=== PATIENT | male | born 1960 | race Caucasian/White ===

== ENCOUNTER 2016-10-22 16:51 | Emergency (ER) | payer BC, OTHER ==
[~2016-10-22] VITALS: Ht 190.5 cm; Wt 100.0 kg
[2016-10-22 16:52] VITALS: BP 134/72; PULSE 83; RESP 16; TEMP 97.7; O2SAT 97
--- NOTE | 2016-10-22 17:23 | PD ---
HPI Chief Complaint: Back/ Neck Pain or Injury Time Seen by Provider: 17:10 Travel History International Travel<30 days: No Contact w/Intl Traveler<30days: No Traveled to known affect area: No History of Present Illness HPI 56-year-old male presents for evaluation of lower back pain. He reports that yesterday he bent over in order to lift something off the ground when he felt a severe lower back pain. Since then he's had constant lower back pain that is somewhat alleviated when he is lying still. It is worse when he tries to move or sit up. The pain does not radiate into the abdomen or down the legs. He denies any bowel or bladder incontinence, saddle anesthesia. He has been using [id number] NSAIDs with minimal relief. He reports that he had a similar pain one time before, 4 years ago. He reports that he had an MRI but does not know the exact results of the MRI. He was sent to a neurosurgeon, no surgery was performed and eventually his pain went away. His primary care physician is Dr. Case. No other complaints. [facility] Social History Tobacco Use: No Allergies-Medications (Allergen,Severity, Reaction): Coded Allergies: No Known Allergies (Unverified , 10/22/16) Reported Meds & Prescriptions Reported Meds & Active Scripts Active Lidoderm Patch 12 HR (Lidocaine) 5% Patch 1 Patch TOPICAL DAILY PRN Remove patch after [address] (Diclofenac Sodium) 75 Mg Tabdr 75 Mg PO BID 10 Days Baclofen 10 Mg Tab 10 Mg PO Q8HR PRN 10 Days Review of Systems Except as stated in HPI: all other systems reviewed are Neg Physical Exam Narrative GENERAL: Well-developed well-nourished male in no acute distress SKIN: Warm and dry. HEAD: Atraumatic. Normocephalic. EYES: Pupils equal and round. No scleral icterus. No injection or drainage. ENT: No nasal bleeding or discharge. Mucous membranes pink and moist. NECK: Trachea midline. No JVD. CARDIOVASCULAR: Regular rate and rhythm. No murmur appreciated. RESPIRATORY: No accessory muscle use. Clear to auscultation. Breath sounds equal bilaterally. GASTROINTESTINAL: Abdomen soft, non-tender, nondistended. Hepatic and splenic margins not palpable. MUSCULOSKELETAL: There is no reproducible tenderness to palpation along the thoracic or lumbar spine or paravertebral musculature. The patient is able to sit up from a lying down position with some pain. He has pain with hip flexion bilaterally. He has 5 out of 5 muscle strength on hip flexion, leg flexion and extension, dorsi and plantar flexion bilaterally. 1+ patellar reflex and Achilles reflex bilaterally. NEUROLOGICAL: Awake and alert. No obvious cranial nerve deficits. Motor grossly within normal limits. Normal speech. Data Data Last Documented VS Vital Signs Date Time Temp Pulse Resp B/P Pulse Ox O2 Delivery O2 Flow Rate FiO2 10/22/16 18:53 16 10/22/16 16:52 97.7 83 134/72 97 Orders Ketorolac Inj (Toradol Inj) (10/22/16 17:30) Morphine Inj (Morphine Inj) (10/22/16 17:30) Ondansetron Inj (Zofran Inj) (10/22/16 17:30) Iv Access Insert/Monitor (10/22/16 17:18) Sodium Chlor 0.9% 1000 Ml Inj (Ns 1000 M (10/22/16 17:52) MDM Medical Decision Making Medical Screen Exam Complete: Yes Emergency Medical Condition: Yes Medical Record Reviewed: Yes Differential Diagnosis Lumbar strain, lumbar spasm, compression fracture, spondylolisthesis, spinal stenosis, herniated nucleus pulposus, cauda equina Narrative Course This is a 56-year-old male with 2 days of lower back pain which started when he went to bend over to lift something off the ground. He has no reproducible tenderness to palpation. He has no symptoms of radiculopathy. He has nothing to suggest a central spinal cord lesion. His symptoms are consistent with a mechanical lumbar strain. The patient was given IV pain medication which did seem to help with his pain. The family members felt quite certain that the patient required emergent MRI of the lumbar spine. There is no indication for an emergent MRI of the lumbar spine. He has no symptoms to suggest spinal cord compromise or infectious process or malignancy as the etiology of his lower back pain. Ideally this patient follow-up with his primary care physician, would likely benefit from physical therapy follow-up. The family was once again quite concerned that the MRI was not being ordered emergently. Dr Luna examine the patient and agreed. Ultimately the charge nurse became involved in order to discuss with family members. We have provided the patient an order slip for an outpatient MRI. He is also being given nonnarcotic pain medication. He is stable for discharge. Diagnosis Primary Impression: Lumbar strain Qualified Code: S39.012A - Lumbar strain, initial encounter Additional Instructions: Use the medication as needed. Take diclofenac with meals. Do not take ibuprofen, naproxen, Aleve, Advil, Motrin when taking diclofenac because they are in the same class of medication. Do not drive or drink alcohol when taking baclofen because it may cause sedation. Avoid strenuous activity or heavy lifting. Avoid bed rest because this can exacerbate the problem. Follow-up with primary care physician. Return for any acutely new or worsening symptoms. Med/Other Pt SpecificInfo: Prescription(s) given Scripts Lidocaine Patch 12 HR (Lidoderm Patch 12 HR)5% Patch1 Patch TOPICAL DAILY PRN ( PAIN) #1 BOX Ref 1 Remove patch after 12 hours Prov:Mara Luna MD 10/22/[address] 75 Mg Tabdr75 Mg PO BID 10 Days Ref 0 Prov:Mara Luna MD 10/22/16 Baclofen 10 Mg Tab10 Mg PO Q8HR PRN (MUSCLE SPASM) 10 Days Ref 0 Prov:Mara Luna MD 10/22/16 Disposition: 01 DISCHARGE HOME Condition: Stable Vito Vann October 22, 2016 17:22
[2016-10-22] MEDS ORDERED: ONDANSETRON HCL 4 MG/2 ML VIAL IV PUSH ONE (17:30)
[2016-10-22] MEDS ORDERED: KETOROLAC TROMETHAMINE 30 MG/ML (IVP) VIAL IV PUSH ONE (17:30)
[2016-10-22] MEDS ORDERED: MORPHINE SULFATE 8 MG/ML INJ IV PUSH ONE (17:30)
[2016-10-22] MEDS ORDERED: SODIUM CHLOR 0.9% 1000 ML INJ 1,000 ML IV SCH (17:52)
[2016-10-22] MEDS ORDERED: LIDO5DIS35 TOPICAL (18:37)
[2016-10-22] MEDS ORDERED: BACL10TA PO (18:37)
[2016-10-22] MEDS ORDERED: DICL75TA PO (18:37)
--- NOTE | 2016-10-22 18:37 | PD ---
Physical Exam Narrative I, Dr. Luna, have reviewed the advance practice practitioner's documentation and am in agreement, met with the patient face to face, made the diagnosis, and the medical decision making was done by me. *My assessment and Findings: Patient is a 56 year old male who comes in complaining of low back pain. Yesterday he reports dropping something and bending over to pick it up when he felt sudden pain to his back. He denies any trauma to his back or any falls. He says he has not been able to walk since then and has been holding himself up on counters and crawling since then. He denies any numbness or tingling. He denies any difficulty urinating. He has not had any fever or chills. He has had issues with his pack periodically over the past few years. He has not taken anything for pain at home. Per family, his chiropractor told him he needed an MRI, but did not order one for him. His daughter states they called the imaging center and were told to come to the ED. Data Data Last Documented VS Vital Signs Date Time Temp Pulse Resp B/P Pulse Ox O2 Delivery O2 Flow Rate FiO2 10/22/16 18:53 16 10/22/16 16:52 97.7 83 134/72 97 Orders Ketorolac Inj (Toradol Inj) (10/22/16 17:30) Morphine Inj (Morphine Inj) (10/22/16 17:30) Ondansetron Inj (Zofran Inj) (10/22/16 17:30) Iv Access Insert/Monitor (10/22/16 17:18) Sodium Chlor 0.9% 1000 Ml Inj (Ns 1000 M (10/22/16 17:52) MDM Supervised Visit with STEFFEN: Yes Narrative Course Exam shows no neurologic abnormalities. He is able to raise each leg off the bed. He has good strength in his bilateral lower extremities. He has no saddle anesthesia. Family is insistent he needs an MRI. I as well as the PA and the nurse explained he has no signs or symptoms that necessitate an emergent need for an MRI at this time. Patient's family is adamant he needs an MRI to diagnose what is wrong with him. I explained that he has a muscle strain and this is treated with pain medication, stretching, avoiding heavy lifting. I explained that the MRI would not help in this case and that he can have 1 as an outpatient if his symptoms do not improve. Family continues to push that he needs an MRI, they' re not happy that we are treating his pain. I asked what they helped again by having the MRI done here. They state that they want one done so they know was going on and they can follow-up with the appropriate doctors. I advised that they do this anyways. I advised that because he has no symptoms of cauda equina syndrome or pressure on his spinal cord, that the MRI is not necessary at this time. Patient's family is very angry. I tried to explain to them what was going on with the patient, but they cut me off repeatedly and did not care what I had to say. Patient was given adequate pain medicine. He refuses to put pressure on his legs, however he was seen pulling himself into the car without any difficulty and using his back muscles appropriately. given prescriptions for pain medicine. Advised follow-up with his doctors and have outpatient testing done. Advised of warning signs of emergent problems and when to return to the emergency department. Diagnosis Primary Impression: Lumbar strain Qualified Code: S39.012A - Lumbar strain, initial encounter Scripts Lidocaine Patch 12 HR (Lidoderm Patch 12 HR)5% Patch1 Patch TOPICAL DAILY PRN ( PAIN) #1 BOX Ref 1 Remove patch after 12 hours Prov:Mara Luna MD 10/22/[address] 75 Mg Tabdr75 Mg PO BID 10 Days Ref 0 Prov:Mara Luna MD 10/22/16 Baclofen 10 Mg Tab10 Mg PO Q8HR PRN (MUSCLE SPASM) 10 Days Ref 0 Prov:Mara Luna MD 10/22/16 Condition: Stable Mara Luna MD October 22, 2016 18:37
[2016-10-22 18:53] VITALS: RESP 16
== END 2016-10-22 19:38 | disposition home or self-care (01) ==
LOC: NEPD 16:51
DX: S39.012A Strain of muscle, fascia and tendon of lower back, initial encounter (principal); X50.0XXA Overexertion from strenuous movement or load, initial encounter
CPT/HCPCS: 96374; 96375; 99283; J1885; J2270; J2405; J7030